=== PATIENT | female | born 1960 | race American Indian/Alaskan Native ===

== ENCOUNTER 2018-06-07 13:21 | Outpatient (CLI) | payer MEDICAID ==
[2018-06-07 13:51] LABS: Bacteria,Urine 2+ /HPF (Negative); Bilirubin,Urine NEG (Negative); Blood,Urine NEG (Negative); Color,Urine Yellow (Yellow); Mucus,Urine FEW /HPF; Urobilinogen,Urine < 2.0 mg/dL (<2.0); WBC,Urine < 1.0 /HPF (0.0-6.0)
[2018-06-07 14:08] LABS: Creatinine,Urine 91.4 mg/dL (0.1-20.0); Protein/Creatinine Ratio,Urine 0.44
[2018-06-07 14:10] LABS: Albumin 4.5 g/dL (3.9-5); Calcium 10.1 mg/dL (8.4-10.2)
== END 2018-06-07 13:22 | disposition home or self-care (01) ==
LOC: LAB 13:21
PROVIDERS: ATTEND Internal Medicine Nephrology
DX: N18.3 Chronic kidney disease, stage 3 (moderate) (principal); F17.210 Nicotine dependence, cigarettes, uncomplicated
CPT/HCPCS: 36415; 80048; 81001; 82040; 82570; 84100; 84156

== ENCOUNTER 2018-10-24 13:38 | Outpatient (CLI) | payer MEDICAID ==
[2018-10-24 14:03] LABS: Hematocrit 30.1 % (30.3-42.9); Hemoglobin 10.1 gm/dl (10.1-14.3); Mean Corpuscular HGB Conc 34 % (30-34); Mean Corpuscular Volume 81 fl (79-97); Platelet Count 317 K/mm3 (140-440); Red Blood Count 3.71 M/mm3 (3.65-5.03); Red Cell Distribution Width 13.2 % (13.2-15.2)
[2018-10-24 14:20] LABS: Bacteria,Urine 2+ /HPF (Negative); Bilirubin,Urine NEG (Negative); Blood,Urine NEG (Negative); Color,Urine Yellow (Yellow); Mucus,Urine FEW /HPF; Protein,Urine <15 mg/dL mg/dL (Negative); Urobilinogen,Urine < 2.0 mg/dL (<2.0)
[2018-10-24 14:25] LABS: Albumin 4.1 g/dL (3.9-5); Calcium 9.1 mg/dL (8.4-10.2)
[2018-10-24 14:48] LABS: Creatinine,Urine 146.3 mg/dL (0.1-20.0); Microalbumin/Creatinine Ratio 37.5 ug/mg
== END 2018-10-24 13:39 | disposition home or self-care (01) ==
LOC: LAB 13:38
PROVIDERS: ATTEND Internal Medicine Nephrology
DX: I12.9 Hypertensive chronic kidney disease with stage 1 through stage 4 chronic kidney disease, or unspecified chronic kidney disease (principal); N18.3 Chronic kidney disease, stage 3 (moderate); J45.909 Unspecified asthma, uncomplicated
CPT/HCPCS: 36415; 80048; 81001; 82040; 82043; 84100; 85027

== ENCOUNTER 2019-04-28 10:29 | Outpatient (CLI) | payer MEDICAID ==
[2019-04-28 11:31] LABS: Albumin 4.3 g/dL (3.9-5); Calcium 9.8 mg/dL (8.4-10.2)
[2019-04-28 11:40] LABS: Bacteria,Urine 2+ /HPF (Negative); Bilirubin,Urine NEG (Negative); Blood,Urine NEG (Negative); Color,Urine Yellow (Yellow); Mucus,Urine FEW /HPF; Protein,Urine <15 mg/dL mg/dL (Negative); Urobilinogen,Urine < 2.0 mg/dL (<2.0)
[2019-04-28 13:13] LABS: Creatinine,Urine 121.4 mg/dL (0.1-20.0); Protein/Creatinine Ratio,Urine 0.09
== END 2019-04-28 10:30 | disposition home or self-care (01) ==
LOC: LAB 10:29
PROVIDERS: ATTEND Internal Medicine Nephrology
DX: E11.22 Type 2 diabetes mellitus with diabetic chronic kidney disease (principal); I12.9 Hypertensive chronic kidney disease with stage 1 through stage 4 chronic kidney disease, or unspecified chronic kidney disease; N18.9 Chronic kidney disease, unspecified; M10.9 Gout, unspecified; K21.9 Gastro-esophageal reflux disease without esophagitis; R80.9 Proteinuria, unspecified; E55.9 Vitamin D deficiency, unspecified
CPT/HCPCS: 36415; 80048; 81001; 82040; 82570; 84100; 84156

== ENCOUNTER 2019-08-02 14:15 | Outpatient (CLI) | payer MEDICAID ==
[2019-08-02 14:58] LABS: Albumin 4.3 g/dL (3.9-5); Calcium 9.1 mg/dL (8.4-10.2)
[2019-08-02 15:17] LABS: Creatinine,Urine 169.4 mg/dL (0.1-20.0); Protein/Creatinine Ratio,Urine 0.14
[2019-08-02 15:19] LABS: Bacteria,Urine 2+ /HPF (Negative); Bilirubin,Urine NEG (Negative); Blood,Urine NEG (Negative); Color,Urine Yellow (Yellow); Hyaline Casts,Urine 4 /LPF; Protein,Urine <15 mg/dL mg/dL (Negative); Urobilinogen,Urine < 2.0 mg/dL (<2.0); WBC,Urine < 1.0 /HPF (0.0-6.0)
[2019-08-06 13:46] LABS: Vitamin D, 25-OH, D2 29 ng/mL
== END 2019-08-02 14:16 | disposition home or self-care (01) ==
LOC: LAB 14:15
PROVIDERS: ATTEND Internal Medicine Nephrology
DX: I12.9 Hypertensive chronic kidney disease with stage 1 through stage 4 chronic kidney disease, or unspecified chronic kidney disease (principal); N18.3 Chronic kidney disease, stage 3 (moderate); E55.9 Vitamin D deficiency, unspecified; F17.200 Nicotine dependence, unspecified, uncomplicated; J45.909 Unspecified asthma, uncomplicated
CPT/HCPCS: 36415; 80048; 81001; 82040; 82306; 82570; 84100; 84156

== ENCOUNTER 2020-03-08 11:32 | Emergency (ER) | payer MEDICAID ==
[2020-03-08 11:36] VITALS: BP 150/84
--- NOTE | 2020-03-08 11:45 | Event Note ---
ED Screening Note ED Screening Note: bilateral leg pain for 2-3 months hx of RA and gout states that the left knee began bothering her last night states she has been taking colchicine no calf pain other hx HTN, athma, bronchitis no allergies to meds
--- NOTE | 2020-03-08 11:47 | Emergency Department Report ---
Chief Complaint: Extremity Injury, Lower Stated Complaint: LEG PAIN - HPI History of Present Illness: pt is a 60 yo female who presents to the ED with c/o bilateral leg pain for 2-3 months hx of RA and gout she states she has pain in her bilateral knees and right ankle states that the left knee began bothering her again last night states she has been taking colchicine no calf pain no CP no SOB no hemoptysis no fall or injury no numbness or weakness other hx HTN, athma, bronchitis, CKD no allergies to meds VSS on exam: non toxic appearing, no acute distress small amount of edema present to the left knee and right ankle, no increased warmth, no erythema, no calf ttp bilaterally, no edema present to the entire BLE, FROM of the bilateral knees, ankles, feet, and toes, neurovascularly intact no clinical signs of septic joint, DVT, she has had no acute traumatic injury, no clinical signs of gout pt most likely presenting with symptoms related to her RA pt will be referred to orthopedic and her PCP discussed in detail with pt strict return precautions and she verbalized understanding medical screening exam performed and there is no threat to life or limb at this time - Exam Vital Signs: Vital Signs 03/08/20 11:33 Temperature 99 F Pulse Rate 66 Respiratory 67 H Rate Blood Pressure 150/84 [Right] O2 Sat by Pulse 100 Oximetry MSE screening note: Focused history and physical exam performed. ED Disposition for MSE Clinical Impression: Bilateral knee pain Qualifiers: Chronicity: acute Qualified Code(s): M25.561 - Pain in right knee Right ankle pain Qualifiers: Chronicity: acute Qualified Code(s): M25.571 - Pain in right ankle and joints of right foot Disposition: Z-07 MED SCREENING EXAM-LEFT Is pt being admited?: No Does the pt Need Aspirin: No Condition: Stable Instructions: Rheumatoid Arthritis (ED), Arthralgia (ED) Additional Instructions: may use ice pack, heating pad, rest, elevation of the legs. may take tylenol as needed for pain. follow up with an orthopedic doctor. return to the emergency room immediately for any new or worsening symptoms. Referrals: [facility] [Provider Group] - 3-5 Days ROBERTA MOHR MD [Staff Physician] - 3-5 Days JENNIFER MONTANO MD [Staff Physician] - 3-5 Days Time of Disposition: 11:46 Print Language: MALAY
== END 2020-03-08 11:51 | disposition left against medical advice (07) ==
LOC: ED 11:32
DX: M25.561 Pain in right knee (principal); M25.562 Pain in left knee; M25.571 Pain in right ankle and joints of right foot
CPT/HCPCS: 99281

== ENCOUNTER 2021-01-02 13:17 | Emergency (ER) | payer MEDICAID ==
[2021-01-02 14:28] VITALS: BP 165/83
--- NOTE | 2021-01-02 15:19 | Event Note ---
ED Screening Note Date of service: 01/02/21 Time: 15:17 ED Screening Note: 60-year-old female with a past medical history of type 2 diabetes, stage III kidney disease not currently on dialysis, anemia, hyperlipidemia and hypertension. Complains of generalized itching, generalized burning, generalized cramping for the past 6 months. Patient states that she spoke to her kidney doctor, as well as a control clerk food and beverage oncologist and initially told her it could be related to her anemia and kidney disease but when she called back yesterday telling them that she was still having her symptoms they told her to come to the ER. She states that she did mention it to her primary care doctor who recommended Aveeno but she states that this did not help. She has been taking Benadryl and allergy medication without relief. She denies any rash, swelling or any new contacts such as foods, meds, or any other new contacts. She denies vomiting, diarrhea, shortness of breath, fever, chills, cough This initial assessment/diagnostic orders/clinical plan/treatment(s) is/are subject to change based on patients health status, clinical progression and re- assessment by fellow clinical providers in the ED. Further treatment and workup at subsequent clinical providers discretion. Patient/guardian urged not to elope from the ED as their condition may be serious if not clinically assessed and managed. Initial orders include: Basic labs
[2021-01-02 15:53] LABS: Basophils # (Auto) 0.1 K/mm3 (0.0-0.1); Basophils % (Auto) 1.1 % (0.0-1.8); Eosinophils # (Auto) 0.1 K/mm3 (0.0-0.4); Eosinophils % (Auto) 2.6 % (0.0-4.3); Hematocrit 35.5 % (30.3-42.9); Hemoglobin 11.5 gm/dl (10.1-14.3); Lymphocytes # (Auto) 1.8 K/mm3 (1.2-5.4); Lymphocytes % (Auto) 33.5 % (13.4-35.0); Mean Corpuscular HGB Conc 32 % (30-34); Mean Corpuscular Volume 83 fl (79-97); Monocytes # (Auto) 0.4 K/mm3 (0.0-0.8); Monocytes % (Auto) 7.8 % (0.0-7.3); Platelet Count 476 K/mm3 (140-440)
[2021-01-02 16:05] LABS: Alanine Aminotransferase 12 units/L (7-56); Albumin 4.1 g/dL (3.9-5); BUN/Creatinine Ratio 14; Blood Urea Nitrogen 44 mg/dL (7-17); Calcium 9.5 mg/dL (8.4-10.2); Hemolysis Index 8
[2021-01-02] MEDS ORDERED: SODIUM CHLORIDE 0.9% 500 ML IVPB IV SCH (17:00)
[2021-01-02 18:08] LABS: Bacteria,Urine 2+ /HPF (Negative); Bilirubin,Urine NEG (Negative); Blood,Urine NEG (Negative); Color,Urine Yellow (Yellow); Mucus,Urine FEW /HPF; Urobilinogen,Urine < 2.0 mg/dL (<2.0)
[2021-01-02 18:10] LABS: Protein,Urine >500 mg/dL (Negative)
--- NOTE | 2021-01-02 18:13 | Emergency Department Report ---
ED General Adult HPI - General Chief complaint: Pain General Stated complaint: PAIN AND ICHING ALL OVER Time Seen by Provider: 01/02/21 16:43 Source: patient Mode of arrival: Ambulatory Limitations: No Limitations - History of Present Illness Initial comments: This is a 60-year-old female nontoxic, well nourished in appearance, no acute signs of distress presents to the ED with c/o of generalized body aches with burning sensation x6 months. Patient has history of kidney insufficiency and diabetes. Patient does follow-up with her case technician and primary care doctor. Patient otherwise denies any other complaints. Patient denies any chest pain, shortness of breath, fever, chills, nausea, vomiting, abdominal pain, back pain, feet swelling or leg pains. Patient denies any allergies. -: month(s) Radiation: non-radiation Severity scale (0 -10): 3 Quality: burning, aching Consistency: constant Improves with: none Worsens with: none Associated Symptoms: denies other symptoms. denies: confusion, chest pain, cough, diaphoresis, fever/chills, headaches, loss of appetite, malaise, nausea/vomiting, rash, seizure, shortness of breath, syncope, weakness Treatments Prior to Arrival: none - Related Data Previous Rx's Medication Instructions Recorded Last Taken Type HYDROcodone/ACETAMINOPHEN [Turner 1 each PO Q8HR PRN #10 tablet 06/09/18 Unknown Rx 5-325 Tablet] traMADoL [Ultram] 50 mg PO Q6HR PRN #24 tablet 06/09/18 Unknown Rx Allergies Allergy/AdvReac Type Severity Reaction Status Date / Time No Known Allergies Allergy Verified 06/09/18 13:04 ED Review of Systems ROS: Stated complaint: PAIN AND ICHING ALL OVER Other details as noted in HPI Comment: All other systems reviewed and negative Constitutional: denies: chills, fever Eyes: denies: eye pain, eye discharge, vision change ENT: denies: ear pain, throat pain Respiratory: denies: cough, shortness of breath, wheezing Cardiovascular: denies: chest pain, palpitations Endocrine: no symptoms reported Gastrointestinal: denies: abdominal pain, nausea, diarrhea Genitourinary: denies: urgency, dysuria, discharge Musculoskeletal: denies: back pain, joint swelling, arthralgia, myalgia Skin: denies: rash, lesions Neurological: denies: headache, weakness, paresthesias Psychiatric: denies: anxiety, depression Hematological/Lymphatic: denies: easy bleeding, easy bruising ED Past Medical Hx - Past Medical History Hx Hypertension: Yes Hx Renal Disease: Yes (Stage 3) Hx Arthritis: Yes (RA) Hx Asthma: Yes Additional medical history: gout, RA, bronchitis - Social History Smoking Status: Unknown if ever smoked Substance Use Type: None - Medications Home Medications: Home Medications Medication Instructions Recorded Confirmed Last Taken Type HYDROcodone/ACETAMINOPHEN [Turner 1 each PO Q8HR PRN #10 tablet 06/09/18 Unknown Rx 5-325 Tablet] traMADoL [Ultram] 50 mg PO Q6HR PRN #24 tablet 06/09/18 Unknown Rx ED Physical Exam - General Limitations: No Limitations General appearance: alert, in no apparent distress - Head Head exam: Present: atraumatic, normocephalic - Eye Eye exam: Present: normal appearance - Neck Neck exam: Present: normal inspection, full ROM. Absent: tenderness, meningismus, lymphadenopathy - Respiratory Respiratory exam: Present: normal lung sounds bilaterally. Absent: respiratory distress, wheezes, rales, rhonchi, stridor, chest wall tenderness, accessory muscle use, decreased breath sounds, prolonged expiratory - Cardiovascular Cardiovascular Exam: Present: regular rate, normal rhythm, normal heart sounds. Absent: bradycardia, tachycardia, irregular rhythm, systolic murmur, diastolic murmur, rubs, gallop - GI/Abdominal GI/Abdominal exam: Present: soft, normal bowel sounds. Absent: distended, tenderness, guarding, rebound, rigid, diminished bowel sounds - Extremities Exam Extremities exam: Present: normal inspection, full ROM, normal capillary refill. Absent: tenderness, joint swelling, calf tenderness - Back Exam Back exam: Present: normal inspection, full ROM. Absent: tenderness, CVA tenderness (R), CVA tenderness (L), muscle spasm, paraspinal tenderness, vertebral tenderness, rash noted - Neurological Exam Neurological exam: Present: alert, oriented X3, normal gait - Psychiatric Psychiatric exam: Present: normal affect, normal mood - Skin Skin exam: Present: warm, dry, intact, normal color. Absent: rash ED Course Vital Signs 01/02/21 14:26 Temperature 97.7 F Pulse Rate 81 Respiratory 18 Rate Blood Pressure 165/83 O2 Sat by Pulse 100 Oximetry - Reevaluation(s) Reevaluation #1: 01/02/21 18:14 Patient is speaking in full sentences with no signs of distress noted. ED Medical Decision Making - Lab Data Result diagrams: 01/02/21 15:23 01/02/21 15:23 Lab Results 01/02/21 01/02/21 01/02/21 Range/Units 15:23 15:23 17:14 WBC 5.5 (4.5-11.0) K/mm3 RBC 4.30 (3.65-5.03) M/mm3 Hgb 11.5 (10.1-14.3) gm/dl Hct 35.5 (30.3-42.9) % MCV 83 (79-97) fl MCH 27 L (28-32) pg MCHC 32 (30-34) % RDW 16.0 H (13.2-15.2) % Plt Count 476 H (140-440) K/mm3 Lymph % (Auto) 33.5 (13.4-35.0) % Logan % (Auto) 7.8 H (0.0-7.3) % Eos % (Auto) 2.6 (0.0-4.3) % Baso % (Auto) 1.1 (0.0-1.8) % Lymph # (Auto) 1.8 (1.2-5.4) K/mm3 Logan # (Auto) 0.4 (0.0-0.8) K/mm3 Eos # (Auto) 0.1 (0.0-0.4) K/mm3 Baso # (Auto) 0.1 (0.0-0.1) K/mm3 Seg Neutrophils % 55.0 (40.0-70.0) % Seg Neutrophils # 3.0 (1.8-7.7) K/mm3 Sodium 136 L (137-145) mmol/L Potassium 3.8 (3.6-5.0) mmol/L Chloride 100.2 (98-107) mmol/L Carbon Dioxide 25 (22-30) mmol/L Anion Gap 15 mmol/L BUN 44 H (7-17) mg/dL Creatinine 3.2 H (0.6-1.2) mg/dL Estimated GFR 18 ml/min BUN/Creatinine Ratio 14 % Glucose 276 H (65-100) mg/dL Calcium 9.5 (8.4-10.2) mg/dL Magnesium 2.20 (1.7-2.3) mg/dL Total Bilirubin < 0.20 (0.1-1.2) mg/dL AST 21 (5-40) units/L ALT 12 (7-56) units/L Alkaline Phosphatase 89 (35-129) units/L Total Protein 7.7 (6.3-8.2) g/dL Albumin 4.1 (3.9-5) g/dL Albumin/Globulin Ratio 1.1 % Urine Color Yellow (Yellow) Urine Turbidity Clear (Clear) Urine pH 5.0 (5.0-7.0) Ur Specific [place] 1.014 (1.003-1.030) Urine Protein >500 (Negative) mg/dL Urine Glucose (UA) 50 (Negative) mg/dL Urine Ketones Neg (Negative) mg/dL Urine Blood Neg (Negative) Urine Nitrite Neg (Negative) Urine Bilirubin Neg (Negative) Urine Urobilinogen < 2.0 (<2.0) mg/dL Ur Leukocyte Esterase Neg (Negative) Urine WBC (Auto) 1.0 (0.0-6.0) /HPF Urine RBC (Auto) 6.0 (0.0-6.0) /HPF U Epithel Cells (Auto) 1.0 (0-13.0) /HPF Urine Bacteria (Auto) 2+ (Negative) /HPF Urine Mucus Few /HPF - Medical Decision Making 60-year-old female that presents with diabetic neuropathy secondary to diabetes and kidney insufficiency. Patient is stable and was examined by me. Vital si gns are stable. Physical exam is unremarkable. Labs obtained with no significant abnormalities. Patient is notified of the results with no questions noted by the patient. Patient was instructed to follow-up with a primary care doctor in 3-5 days or if symptoms worsen and continue return to emergency room as soon as possible. At time of discharge, the patient does not seem toxic or ill in appearance. No acute signs of distress noted. Patient agrees to discharge treatment plan of care. No further questions noted by the patient. Critical care attestation.: If time is entered above; I have spent that time in minutes in the direct care of this critically ill patient, excluding procedure time. ED Disposition Clinical Impression: Diabetic neuropathy Qualifiers: Diabetes mellitus type: type 2 Diabetes mellitus complication detail: with other neurological complication Qualified Code(s): E11.49 - Type 2 diabetes mellitus with other diabetic neurological complication Chronic kidney insufficiency Qualifiers: Chronic kidney disease stage: unspecified stage Qualified Code(s): N18.9 - Chronic kidney disease, unspecified Disposition: DC-01 TO HOME OR SELFCARE Is pt being admited?: No Does the pt Need Aspirin: No Condition: Stable Instructions: Diabetes Mellitus Type 2 in Adults (ED), Diabetic Neuropathy, Type 2 Diabetes Mellitus, Self Care, Adult, [id number] Additional Instructions: Follow-up with a primary care doctor in 3-5 days or if symptoms worsen and continue return to emergency room as soon as possible. Referrals: PRIMARY MD [facility] [Primary Care Provider] - 3-5 Days CHRIS FIORE MD [Staff Physician] - 3-5 Days Time of Disposition: 18:16
== END 2021-01-02 18:27 | disposition home or self-care (01) ==
LOC: ED 13:17
DX: E11.40 Type 2 diabetes mellitus with diabetic neuropathy, unspecified (principal); I12.9 Hypertensive chronic kidney disease with stage 1 through stage 4 chronic kidney disease, or unspecified chronic kidney disease; E11.22 Type 2 diabetes mellitus with diabetic chronic kidney disease; N18.9 Chronic kidney disease, unspecified; M19.91 Primary osteoarthritis, unspecified site; J45.909 Unspecified asthma, uncomplicated; Z79.899 Other long term (current) drug therapy
CPT/HCPCS: 36415; 80053; 81001; 83735; 85025

== ENCOUNTER 2021-04-08 13:20 | Emergency (ER) | payer MEDICAID ==
[2021-04-08 13:58] VITALS: BP 232/105
== END 2021-04-08 22:55 | disposition left against medical advice (07) ==
LOC: ED 13:20
DX: R41.0 Disorientation, unspecified (principal); Z53.21 Procedure and treatment not carried out due to patient leaving prior to being seen by health care provider

== ENCOUNTER 2021-05-26 12:28 | Outpatient (CLI) | payer MEDICAID ==
[2021-05-26 13:30] LABS: Calcium 9.9 mg/dL (8.4-10.2)
== END 2021-05-26 12:29 | disposition home or self-care (01) ==
LOC: LAB 12:28
PROVIDERS: ATTEND Internal Medicine
DX: N18.30 Chronic kidney disease, stage 3 unspecified (principal)
CPT/HCPCS: 36415; 80048